=== PATIENT | female | born 1975 | race Caucasian/White ===

== ENCOUNTER 2016-03-17 16:22 | Emergency (ER) | payer OTHER ==
[2016-03-17] MEDS ORDERED: KETOROLAC 60 MG/2 ML VIAL IM ONE (20:02)
== END 2016-03-17 20:37 | disposition home or self-care (01) ==
LOC: ER 16:22
DX: M76.62 Achilles tendinitis, left leg (principal); Z79.899 Other long term (current) drug therapy
CPT/HCPCS: 96372